=== PATIENT | female | born 1965 | race Caucasian/White ===

== ENCOUNTER 2017-07-23 14:53 | Observation (INO) ==
[2017-07-23 15:37] LABS: Bilirubin,Urine Negative (Negative); Blood,Urine Negative (Negative); Clarity,Urine Cloudy (Clear); Color,Urine Yellow (Yellow); Glucose,Urine (UA) >=1000 mg/dL (Normal); Ketones,Urine 15 mg/dL (Negative); Leukocyte Esterase,Urine Negative (Negative); Nitrite,Urine Negative (Negative); Protein,Urine Negative (Neg-Trace); Specific Gravity,Urine > 1.030 (1.010-1.025); Urobilinogen,Urine Normal (Normal)
[2017-07-23 15:39] LABS: Bacteria,Urine Few per hpf (None-Few); Hyaline Casts,Urine None Seen per lpf (None-Few); Squamous Epithelial Cell,Urine Many per lpf (None-Few); WBC,Urine 0-3 per hpf (0-3)
[2017-07-23 15:43] LABS: Amphetamine Screen,Urine Negative ng/mL (Cutoff=1000); Barbiturate Screen,Urine Negative ng/mL (Cutoff=200); Benzodiazepines Screen,Urine Positive ng/mL (Cutoff=200); Cannabinoid Screen,Urine Negative ng/mL (Cutoff = 50); Cocaine Screen,Urine Negative ng/mL (Cutoff= 300); Opiate Screen,Urine Negative ng/mL (Cutoff=300); Phencyclidine Screen,Urine Negative ng/mL (Cutoff=25)
[2017-07-23 15:54] LABS: RBC,Urine 0-3 per hpf (0-3); Yeast,Urine Few per hpf (None Seen)
--- NOTE | 2017-07-23 15:54 | Emergency Department Note ---
Disposition Clinical Impression: Hyperglycemia, Suicidal ideation Chest pain Qualifiers: Chest pain type: unspecified Qualified Code(s): R07.9 - Chest pain, unspecified Disposition: Admitted As Inpatient Condition: Good Time of Disposition: 17:57 Psych HPI - General Chief Complaint: ED Psychiatric Symptoms Stated Complaint: SI Time Seen by Provider: 07/23/17 15:20 Source: patient Mode of arrival: ambulatory Limitations: no limitations Nursing Notes Reviewed: Yes Vital Signs Reviewed: Yes - History of Present Illness HPI Narrative: Patient is a 52-year-old female with past medical history of high blood pressure , diabetes, high cholesterol, depression, anxiety. She presents today due to suicidal ideation. She does admit that she has had an admission to [facility] here once in the past about a year ago. She denies any previous suicide attempts or self harm. She has had an exacerbation and depression over the past 2 years due to the passing of her mother. She denies any ingestions, self- harm today. She does have a plan of using a razor blade to cut herself to bleed to . She denies any homicidal ideation, visual or auditory hallucinations. She takes Valium and Vistaril daily for anxiety. She follows with Dr. Mittal. She called their office and was referred to the ED. While waiting for room, the patient began having centered chest pain with radiation to her left jaw. She does admit to panic attacks but says that this is different from usual presentation. Denies any shortness of breath, vomiting , fevers, abdominal pain. Denies any previous history of [place], stents. She had a heart cath last year that was negative per patient. - Related Data Home Medications Medication Instructions Recorded Confirmed Citalopram [CeleXA] 40 mg PO DAILY 10/19/16 07/23/17 Lisinopril [Zestril] 20 mg PO BID 10/19/16 07/23/17 Amoxicillin [Amoxil] 500 mg PO TID 07/23/17 07/23/17 Cyclobenzaprine [Flexeril] 10 mg PO TID PRN 07/23/17 07/23/17 Ibuprofen [Motrin] 800 mg PO Q8HR 07/23/17 07/23/17 Mirtazapine [Remeron] 15 mg PO HS 07/23/17 07/23/17 Omeprazole [PriLOSEC] 20 mg PO DAILY 07/23/17 07/23/17 Perphenazine [Trilafon] 2 mg PO QAM AND QHS 07/23/17 07/23/17 diazePAM [Valium] 10 mg PO BID PRN 07/23/17 07/23/17 hydrOXYzine HCl [Hydroxyzine HCl] 50 mg PO TID PRN 07/23/17 07/23/17 Previous Rx's Medication Instructions Recorded Perphenazine [Trilafon] 8 mg PO HS #30 tablet 01/27/16 glipiZIDE [Glucotrol] 10 mg PO BIDWM tablet 01/27/16 metFORMIN [Glucophage] 1,000 mg PO BIDWM tablet 01/27/16 Allergies Allergy/AdvReac Type Severity Reaction Status Date / Time No Known Allergies Allergy Verified 04/16/16 01:48 All systems ED: reviewed and negative except as stated. Constitutional: Denies: fever Cardiovascular: Reports: chest pain Past Medical History - Past Medical History Attestation: Yes The following information was validated with the patient. Source: patient Medical history: Reports: arthritis, diabetes, GERD, hyperlipidemia, hypertension, seizures, other Surgical history: Reports: appendectomy, , cholecystectomy, hysterectomy, other Psychiatric history: Reports: anxiety, depression, prior suicide attempt, previous psychiatric hospitalization - Social History Smoking Status: Never smoker Smokeless Tobacco Status: No Alcohol use: Reports: none Drug use: Reports: none Physical Exam - General Limitations: no limitations General appearance: alert, in no apparent distress - Head Head exam: atraumatic, normocephalic, normal inspection - Eye Eye exam: Present: normal appearance, PERRL, EOMI - ENT ENT exam: normal exam, normal oropharynx, mucous membranes moist - Neck Neck exam: Present: normal inspection, full ROM, trachea midline - Chest Chest inspection: Present: normal inspection, symmetric chest wall rise - Respiratory Respiratory exam: Present: normal lung sounds bilaterally - Cardiovascular Cardiovascular exam: Present: regular rate, normal rhythm, normal heart sounds - Abdominal Exam Abdominal exam: Present: soft, Non-Tender. Absent: tenderness, distention, guarding, rebound, rigidity - Extremities Exam Extremities exam: Present: normal inspection, full ROM. Absent: tenderness, pedal edema - Neurological Exam Neurological exam: Present: alert, oriented X3 - Psychiatric Psychiatric exam: Present: depressed, flat affect - Skin Skin exam: Present: warm, dry, intact, normal color Course Course Narrative: Patient mildly tachycardic, mildly hypertensive. She does appear anxious on exam. The rest of the vitals were within normal limits. Physical exam shows heart regular rhythm, lungs clear to auscultation, no reproducible chest pain on exam, abdomen soft and benign. We will draw a troponin, medical clearance labs, EKG, chest x-ray. Chest pain may be more anxiety in nature, but will perform cardiac eval. 17:18 troponin negative. Chest x-ray negative. Glucose elevated at 400s, no anion gap. We will give the patient normal saline and 10 units of IV insulin. Patient is still having chest pain despite 4 mg of morphine. The patient was not able to be given nitroglycerin because of a lower systolic blood pressure in the 90s on initial presentation. Blood pressure has since normalized and his 120s systolic. Due to continued chest pain, will admit the patient for chest pain rule out. I have also called behavioral health team who have agreed to be a consult to the patient while inpatient. Patient will need a sitter. This will be discussed with the hospitalist. Vital Signs Temperature 98.3 F 07/23/17 15:04 Pulse Rate 103 07/23/17 15:04 Respiratory Rate 18 07/23/17 15:04 Blood Pressure 135/84 07/23/17 15:04 O2 Sat by Pulse Oximetry 96 07/23/17 15:04 Temperature 98.0 F 07/23/17 19:24 Pulse Rate 86 07/23/17 19:24 Respiratory Rate 15 07/23/17 19:24 Blood Pressure 102/69 07/23/17 19:24 O2 Sat by Pulse Oximetry 94 07/23/17 19:24 Oxygen Delivery Oxygen Delivery Room Air Psych - MDM Narrative Medical decision making narrative: troponin negative. Chest x-ray negative. Glucose elevated at 400s, no anion gap. We will give the patient normal saline and 10 units of IV insulin. Patient is still having chest pain despite 4 mg of morphine. The patient was not able to be given nitroglycerin because of a lower systolic blood pressure in the 90s on initial presentation. Blood pressure has since normalized and his 120s systolic. Due to continued chest pain, will admit the patient for chest pain rule out. I have also called behavioral health team who have agreed to be a consult to the patient while inpatient. Patient will need a sitter. [place] slip on chart. This will be discussed with the hospitalist. - Lab Data Lab results reviewed: Yes I reviewed the patient's lab results. Result diagrams: 07/23/17 16:40 07/23/17 16:02 Lab Results 07/23/17 07/23/17 07/23/17 Range/Units 15:01 15:01 16:02 WBC (4.3-11.1) K/mcL RBC (3.82-4.97) M/mcL Hgb (11.5-15.4) g/dL Hct (35.3-44.9) % MCV (83.0-100.0) fL MCH (28.0-33.3) pg MCHC (31.6-35.5) g/dL RDW (11.5-14.5) % Plt Count (140-400) K/mcL MPV (9.4-12.4) fL Immature Gran % (0-4) % Seg Neutrophils % % Lymphocytes % % Monocytes % % Eosinophils % % Basophils % % Neutrophils # (1.6-8.9) K/mcL Lymphocytes # (0.6-4.6) K/mcL Monocytes # (0.0-1.3) K/mcL Eosinophils # (0.0-0.6) K/mcL Basophils # (0.0-0.2) K/mcL Immature Plt Fraction (1.1-6.1) % Sodium 132 L (136-145) mEq/L Potassium 4.0 (3.5-4.5) mEq/L Chloride 103 (98-109) mEq/L Carbon Dioxide 17 L (19-29) mEq/L BUN 10 (7-20) mg/dL Creatinine 0.87 (0.57-1.11) mg/dL Est GFR ( Amer) > 60 (> 60) Est GFR (Non-Af Amer) > 60 (> 60) BUN/Creatinine Ratio 11 (6-26) Glucose 418 H (70-99) mg/dL POC Glucose (58-89) Calculated Osmolality 291 (280-300) Calcium 9.2 (8.6-10.8) mg/dL Total Bilirubin 0.2 (0.2-1.2) mg/dL Direct Bilirubin 0.1 (0.0-0.5) mg/dL Indirect Bilirubin 0.1 (0.0-1.2) mg/dL AST 18 (5-34) Units/L ALT 23 (0-55) Units/L Alkaline Phosphatase 176 H (38-126) Units/L Troponin I (0-0.03) ng/mL Serum Total Protein 7.0 (6.0-8.3) g/dL Albumin 3.3 L (3.5-5.0) g/dL Globulin 3.7 H (2.4-3.5) g/dL Albumin/Globulin Ratio 0.9 L (1.1-2.2) TSH 1.003 (0.350-4.840) mcIU/mL Urine Color Yellow (Yellow) Urine Clarity Cloudy A (Clear) Urine pH 6.0 (5.0-8.0) pH Units Ur Specific [place] > 1.030 H (1.010-1.025) Urine Protein Negative (Neg-Trace) mg/dL Urine Glucose (UA) >=1000 H (Normal) mg/dL Urine Ketones 15 H (Negative) mg/dL Urine Blood Negative (Negative) Urine Nitrite Negative (Negative) Urine Bilirubin Negative (Negative) Urine Urobilinogen Normal (Normal) mg/dL Ur Leukocyte Esterase Negative (Negative) Urine Microscopic RBC 0-3 (0-3) per hpf Urine Microscopic WBC 0-3 (0-3) per hpf Ur Squamous Epith Cells Many H (None-Few) per lpf Urine Bacteria Few (None-Few) per hpf Hyaline Casts None Seen (None-Few) per lpf Urine Yeast Few H (None Seen) per hpf Salicylates < 5.0 L (15-30) mg/dL Urine Opiates Screen Negative (Wyxkrg=207) ng/mL Acetaminophen < 1.0 L (10-30) mcg/mL Ur Barbiturates Screen Negative (Avnjuc=870) ng/mL Ur Phencyclidine Scrn Negative (Cutoff=25) ng/mL Ur Amphetamines Screen Negative (Bznkgh=9663) ng/mL U Benzodiazepines Scrn Positive H (Wvkkqi=234) ng/mL Urine Cocaine Screen Negative (Cutoff= 300) ng/mL U Marijuana (THC) Screen Negative (Cutoff = 50) ng/mL Ethyl Alcohol < 10 (0-10) mg/dL 10/07/23/17 07/23/17 Range/Units 16:02 16:40 17:49 WBC 8.5 (4.3-11.1) K/mcL RBC 4.20 (3.82-4.97) M/mcL Hgb 11.3 L (11.5-15.4) g/dL Hct 33.1 L (35.3-44.9) % MCV 78.8 L (83.0-100.0) fL MCH 26.9 L (28.0-33.3) pg MCHC 34.1 (31.6-35.5) g/dL RDW 12.6 (11.5-14.5) % Plt Count 244 (140-400) K/mcL MPV 9.7 (9.4-12.4) fL Immature Gran % 0.9 (0-4) % Seg Neutrophils % 58.6 % Lymphocytes % 34.4 % Monocytes % 4.1 % Eosinophils % 1.5 % Basophils % 0.5 % Neutrophils # 5.0 (1.6-8.9) K/mcL Lymphocytes # 2.9 (0.6-4.6) K/mcL Monocytes # 0.4 (0.0-1.3) K/mcL Eosinophils # 0.1 (0.0-0.6) K/mcL Basophils # 0.0 (0.0-0.2) K/mcL Immature Plt Fraction 3.2 (1.1-6.1) % Sodium (136-145) mEq/L Potassium (3.5-4.5) mEq/L Chloride (98-109) mEq/L Carbon Dioxide (19-29) mEq/L BUN (7-20) mg/dL Creatinine (0.57-1.11) mg/dL Est GFR ( Amer) (> 60) Est GFR (Non-Af Amer) (> 60) BUN/Creatinine Ratio (6-26) Glucose (70-99) mg/dL POC Glucose 306 H (58-89) Calculated Osmolality (280-300) Calcium (8.6-10.8) mg/dL Total Bilirubin (0.2-1.2) mg/dL Direct Bilirubin (0.0-0.5) mg/dL Indirect Bilirubin (0.0-1.2) mg/dL AST (5-34) Units/L ALT (0-55) Units/L Alkaline Phosphatase (38-126) Units/L Troponin I 0.01 (0-0.03) ng/mL Serum Total Protein (6.0-8.3) g/dL Albumin (3.5-5.0) g/dL Globulin (2.4-3.5) g/dL Albumin/Globulin Ratio (1.1-2.2) TSH (0.350-4.840) mcIU/mL Urine Color (Yellow) Urine Clarity (Clear) Urine pH (5.0-8.0) pH Units Ur Specific [place] (1.010-1.025) Urine Protein (Neg-Trace) mg/dL Urine Glucose (UA) (Normal) mg/dL Urine Ketones (Negative) mg/dL Urine Blood (Negative) Urine Nitrite (Negative) Urine Bilirubin (Negative) Urine Urobilinogen (Normal) mg/dL Ur Leukocyte Esterase (Negative) Urine Microscopic RBC (0-3) per hpf Urine Microscopic WBC (0-3) per hpf Ur Squamous Epith Cells (None-Few) per lpf Urine Bacteria (None-Few) per hpf Hyaline Casts (None-Few) per lpf Urine Yeast (None Seen) per hpf Salicylates (15-30) mg/dL Urine Opiates Screen (Lexdmh=692) ng/mL Acetaminophen (10-30) mcg/mL Ur Barbiturates Screen (Idlybg=374) ng/mL Ur Phencyclidine Scrn (Cutoff=25) ng/mL Ur Amphetamines Screen (Lyvhjc=4227) ng/mL U Benzodiazepines Scrn (Tzamys=395) ng/mL Urine Cocaine Screen (Cutoff= 300) ng/mL U Marijuana (THC) Screen (Cutoff = 50) ng/mL Ethyl Alcohol (0-10) mg/dL - Radiology Data Radiology results reviewed: Yes I reviewed the patient's radiology results. Chest X-Ray 07/23/17 15:55 IMPRESSION: No acute process. D/ / Silverio Bee MD / Silverio Bee MD Interpreting Provider: Silverio Bee MD - EKG Data EKG attestation: Yes I reviewed and interpreted this EKG. EKG results narrative: 07/23/2017 at 15:35. Sinus tachycardia. Rate 101. NC 163. QRS 82. QTC 428. No acute ST elevation or depression. Psychiatric Medical Clearance - Medical Clearance Checklist Medical History: Chest pain (Acute) GERD (gastroesophageal reflux disease) (Acute) Atrial fibrillation (Acute) Anxiety (Acute) DVT prophylaxis (Acute) Abnormal stress test (Acute) Hyperglycemia (Acute) PTSD (post-traumatic stress disorder) (Acute) Acute anxiety (Acute) Depression (Chronic) Suicidal ideation (Acute) Recurrent major depression-severe (Acute) Seizure disorder (Chronic) Morbid obesity with BMI of 40.0-44.9, adult (Chronic) Diabetes mellitus (Chronic) Hypertension (Chronic) Dyslipidemia (Chronic) Hypokalemia (Acute) Anemia (Chronic) Situational disturbance (Acute) Psychiatric pseudoseizure (Acute) No Social History Section defined Current Vitals: Last Vital Signs Temp 98.0 F 07/23/17 19:24 Pulse 86 07/23/17 19:24 Resp 15 07/23/17 19:24 BP 102/69 07/23/17 19:24 Pulse Ox 94 07/23/17 19:24 Psychiatric Lab Panel: Drug Levels and Toxicity 07/23/17 07/23/17 15:01 16:02 Urine Opiates Screen Negative Acetaminophen < 1.0 L Ur Barbiturates Screen Negative Ur Phencyclidine Scrn Negative Ur Amphetamines Screen Negative U Benzodiazepines Scrn Positive H Urine Cocaine Screen Negative U Marijuana (THC) Screen Negative Ethyl Alcohol < 10 Abnormal Labs: Abnormal lab results Hgb 11.3 g/dL (11.5-15.4) L 07/23/17 16:40 Hct 33.1 % (35.3-44.9) L 07/23/17 16:40 MCV 78.8 fL (83.0-100.0) L 07/23/17 16:40 MCH 26.9 pg (28.0-33.3) L 07/23/17 16:40 Sodium 132 mEq/L (136-145) L 07/23/17 16:02 Carbon Dioxide 17 mEq/L (19-29) L 07/23/17 16:02 Glucose 418 mg/dL (70-99) H 07/23/17 16:02 POC Glucose 306 (58-89) H 07/23/17 17:49 Alkaline Phosphatase 176 Units/L (38-126) H 07/23/17 16:02 Albumin 3.3 g/dL (3.5-5.0) L 07/23/17 16:02 Globulin 3.7 g/dL (2.4-3.5) H 07/23/17 16:02 Albumin/Globulin Ratio 0.9 (1.1-2.2) L 07/23/17 16:02 Urine Clarity Cloudy (Clear) A 07/23/17 15:01 Ur Specific [place] > 1.030 (1.010-1.025) H 07/23/17 15:01 Urine Glucose (UA) >=1000 mg/dL (Normal) H 07/23/17 15:01 Urine Ketones 15 mg/dL (Negative) H 07/23/17 15:01 Ur Squamous Epith Cells Many per lpf (None-Few) H 07/23/17 15:01 Urine Yeast Few per hpf (None Seen) H 07/23/17 15:01 Salicylates < 5.0 mg/dL (15-30) L 07/23/17 16:02 Acetaminophen < 1.0 mcg/mL (10-30) L 07/23/17 16:02 U Benzodiazepines Scrn Positive ng/mL (Pctohb=390) H 07/23/17 15:01 S.B.A.R. - S.B.A.R. Situation: Demographics, MOA Background: Presenting Complaint, Relevant PMH, Meds, & Allergies Assessment: Vital Signs, Course and respsone to treatment, Exam Concerns, Patient/Family Expectation, Pertinant Lab Results Recommendation: Barrier(s) to disposition, Recommendation based on pending studies, treatments, or consults S.B.A.R. Report Given to: Kiel Herrera SJessBJessADavid Repor Time: 17:56 Attestation Statement - Attestation Attestation: I examined this patient and my medical decision-making was reviewed with the Resident Physician. I agree with the documented findings, disposition and treatment plan as described except to the extent set forth below. Chest pain in the setting of suicidal ideations. EKG nondiagnostic. Initial cardiac biomarkers are negative. We will admit to the hospital as she has ongoing chest pain concurrently with suicidal ideations and we cannot provide adequate medical clearance in the emergency department.
[2017-07-23] MEDS ORDERED: Aspirin 325 MG TABLET PO ONE (15:56)
[2017-07-23] MEDS ORDERED: *HR* Morphine 2 MG/ML SYRINGE IVP ONE ×3 (16:22→23:41)
[2017-07-23 16:26] LABS: Alanine Aminotransferase 23 Units/L (0-55); Albumin 3.3 g/dL (3.5-5.0); Albumin/Globulin Ratio 0.9 (1.1-2.2); Alkaline Phosphatase 176 Units/L (38-126); Aspartate Amino Transferase 18 Units/L (5-34); BUN/Creatinine Ratio 11 (6-26); Bilirubin,Direct 0.1 mg/dL (0.0-0.5); Bilirubin,Indirect 0.1 mg/dL (0.0-1.2); Bilirubin,Total 0.2 mg/dL (0.2-1.2); Blood Urea Nitrogen 10 mg/dL (7-20); Calcium 9.2 mg/dL (8.6-10.8); Carbon Dioxide 17 mEq/L (19-29); Chloride 103 mEq/L (98-109); Globulin 3.7 g/dL (2.4-3.5); Glucose 418 mg/dL (70-99); Osmolality,Calculated 291 (280-300); Sodium 132 mEq/L (136-145); eGFR For African Americans > 60 (> 60); eGFR For Non-African Americans > 60 (> 60)
[2017-07-23 16:31] LABS: Acetaminophen < 1.0 mcg/mL (10-30); Ethanol < 10 mg/dL (0-10); Salicylate < 5.0 mg/dL (15-30)
[2017-07-23 16:49] LABS: Thyroid Stimulating Hormone 1.003 mcIU/mL (0.350-4.840)
[2017-07-23 16:59] LABS: Basophils % 0.5 %; Eosinophils # 0.1 K/mcL (0.0-0.6); Eosinophils % 1.5 %; Hematocrit 33.1 % (35.3-44.9); Hemoglobin 11.3 g/dL (11.5-15.4); Immature Granulocytes % 0.9 % (0-4); Immature Platelets 3.2 % (1.1-6.1); Lymphocytes # 2.9 K/mcL (0.6-4.6); Lymphocytes % 34.4 %; Mean Corpuscular HGB Conc 34.1 g/dL (31.6-35.5); Mean Corpuscular Hemoglobin 26.9 pg (28.0-33.3); Mean Corpuscular Volume 78.8 fL (83.0-100.0); Mean Platelet Volume 9.7 fL (9.4-12.4); Monocytes # 0.4 K/mcL (0.0-1.3); Monocytes % 4.1 %; Platelet Count 244 K/mcL (140-400); Red Cell Distribution Width 12.6 % (11.5-14.5); Segmented Neutrophils % 58.6 %
[2017-07-23] MEDS ORDERED: Insulin Human Regular 10 UNIT in 0.9 % Sodium Chloride 10 ML IV ONE (17:00)
[2017-07-23] MEDS ORDERED: 0.9 % Sodium Chloride 1,000 ML IVC ONE (17:02)
[2017-07-23] MEDS ORDERED: Ondansetron 4 MG/2 ML VIAL IVP ONE (17:13)
[2017-07-23] MEDS ORDERED: *HR* LORazepam 2 MG/ML VIAL IVP ONE (17:59)
[2017-07-23] MEDS: Nitroglycerin 0.4 MG TAB.SUBL SL PRN ×2 (18:57→21:45)
[2017-07-23] MEDS ORDERED: diazePAM 10 MG TABLET PO PRN (22:22)
[2017-07-24] MEDS ORDERED: hydrOXYzine pamoate 25 MG CAPSULE PO PRN (00:49)
--- NOTE | 2017-07-24 01:04 | Internal Med History&Physical ---
Date of Encounter: 07/24/17 Time of Encounter: 01: Assessment and Plan (1) Chest pain Current visit: Yes Status: Acute Non-anginal chest pain. EKG without ischemic changes. Initial troponin normal. Check 2 more sets of cardiac markers. Qualifiers: Chest pain type: unspecified Qualified Code(s): R07.9 - Chest pain, unspecified (2) Suicidal ideation Current visit: Yes Status: Acute No active plan or ingestion. Sitter at bedside. Psychiatry evaluation Internal Medicine - H&P: HPI Chief complaint: chest pain, suicidal History of present illness: Ms. Frost is a 52 year old female with multiple medical problems presented emergency room today with the main complain of suicidal ideations. Patient denies any active attempt of self harm/ingestion today. Patient started complaining of chest pain in the emergency room. She describes pain in the retrosternal area that is non-radiating and not related to exertion. Pain has been constant for several hours to my interview. No improvement was sublingual nitroglycerin. Patient had a coronary angiogram in October 2016 showed no coronary artery disease. Patient denies any illicit drug abuse Past Med Surg Social Fam HX - Past Medical History Medical history: arthritis, diabetes, GERD, hyperlipidemia, hypertension, seizures, other Psychiatric history: anxiety, depression, prior suicide attempt, previous psychiatric hospitalization - Past Surgical History Surgical History: appendectomy, , cholecystectomy, hysterectomy, other - Social History Smoking Status: Never smoker Smokeless Tobacco Status: No Alcohol use: none Drug use: none - Family History Father Living Status: Hx Family Cardiac Disorders: Yes Hx Family Endocrine Disorder: Yes Mother Living Status: Hx Family Cardiac Disorders: Yes Hx Family Respiratory Disorders: Yes (COPD) Hx Family Endocrine Disorder: Yes Internal Medicine - H&P: Meds Perphenazine [Trilafon] 8 mg PO HS #30 tablet 01/27/16 [Rx] glipiZIDE [Glucotrol] 10 mg PO BIDWM tablet 01/27/16 [Rx] metFORMIN [Glucophage] 1,000 mg PO BIDWM tablet 01/27/16 [Rx] Citalopram [CeleXA] 40 mg PO DAILY 10/19/16 [History] Lisinopril [Zestril] 20 mg PO BID 10/19/16 [History] Amoxicillin [Amoxil] 500 mg PO TID 07/23/17 [History] Cyclobenzaprine [Flexeril] 10 mg PO TID PRN 07/23/17 [History] Ibuprofen [Motrin] 800 mg PO Q8HR 07/23/17 [History] Mirtazapine [Remeron] 15 mg PO HS 07/23/17 [History] Omeprazole [PriLOSEC] 20 mg PO DAILY 07/23/17 [History] Perphenazine [Trilafon] 2 mg PO QAM AND QHS 07/23/17 [History] diazePAM [Valium] 10 mg PO BID PRN 07/23/17 [History] hydrOXYzine HCl [Hydroxyzine HCl] 50 mg PO TID PRN 07/23/17 [History] 3 Allergy/AdvReac Type Severity Reaction Status Date / Time No Known Allergies Allergy Verified 04/16/16 01:48 All Systems PM: A 10-system review of systems was performed and is negative for pertinent findings except as documented above in the HPI. Review of systems: 10 point review of systems is negative except for HPI - Constitutional Vitals: Temp Pulse Resp BP Pulse Ox 98.1 F 89 15 100/65 94 07/23/17 22:55 07/23/17 22:55 07/23/17 22:55 07/23/17 22:55 07/23/17 22:55 Exam: Gen.: patient is alert oriented times 3 not in distress. Cardiac: normal S1 S2 no additional sounds or murmurs chest: fair air entry. no active wheezing. No crackles or bronchial breathing. abdomen: soft nontender nondistended normal bowel sounds neuro: no focal deficit Internal Med - H&P Results - Labs CBC & Chem 7: 07/23/17 16:40 07/23/17 16:02
[2017-07-24] MEDS ORDERED: 0.9 % Sodium Chloride 1,000 ML IVC SCH (01:15)
[2017-07-24] MEDS: Nitroglycerin 0.4 MG TAB.SUBL SL PRN (02:12)
[2017-07-24] MEDS ORDERED: 0.9 % Sodium Chloride 1,000 ML IVC ONE (03:00)
[2017-07-24] MEDS: *HR* Morphine 2 MG/ML SYRINGE IVP PRN ×2 (03:13→08:06)
[2017-07-24] MEDS ORDERED: Insulin LISPRO 300 UNITS/3 ML VIAL SQ SCH (04:00)
[2017-07-24] MEDS ORDERED: Dextrose Gel 15 GM PO PRN ×2 (07:28)
[2017-07-24] MEDS ORDERED: D5% in Water 1,000 ML IVC PRN (07:28)
[2017-07-24] MEDS ORDERED: *HR* Dextrose 50 % in Water (Syg) 50 ML SYRINGE IVP PRN (07:28)
[2017-07-24] MEDS: Insulin LISPRO 300 UNITS/3 ML VIAL SQ SCH ×3 (08:05→17:23)
[2017-07-24] MEDS ORDERED: Ondansetron ODT 4 MG TAB.RAPDIS SL PRN (08:15)
[2017-07-24] MEDS ORDERED: Lisinopril 20 MG TABLET PO SCH (09:00)
[2017-07-24 09:16] LABS: Hemoglobin A1C 12.8 %
[2017-07-24] MEDS ORDERED: Aspirin 81 MG TAB.CHEW PO SCH (10:15)
--- NOTE | 2017-07-24 10:50 | Event Note ---
Date of Encounter: 07/24/17 Time of Encounter: 10:00 Nia Frost is a 52 y/o female with PMH depression, PTSD, seizure disorder, HTN and diabetes who presented to [facility] on 07/24/2017 with suicidal ideation. She reported chest pain in the ER and was placed in observation status for Psychiatric evaluation and ACS rule out. 1. Chest pain: patient reported chest pain while in ER. EKG without acute ST changes, serial troponin negative. 10/2016 LCH with minimal CAD. Suspect secondary to anxiety. Hold on further cardiac work-up. Cont ASA, recommend outpatient follow-up with PCP 2. Suicidal ideation: presented with thoughts of wanting to cut self with razor blade. Has known psychiatric hx. Cont 1:1 sitter, Psych consulted 3. Uncontrolled diabetes: Hgb 12%, likely secondary to diet non-compliance. Holding home oral hypoglycemics. SSI. Monitor blood sugar and titrate PRN 4. Depression: with anxiety. Per hx. Follows with Daily. Cont home Diazepam , Celexa ([facility] reviewed 07/24/17 and has active rx for valium). Psych consulted 5. DVT prophylaxis: Heparin
[2017-07-24] MEDS ORDERED: diazePAM 10 MG TABLET PO PRN (10:51)
[2017-07-24 12:00] VITALS: BP 122/74
--- NOTE | 2017-07-24 12:26 | Electrocardiograph Report ---
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
--- NOTE | 2017-07-24 13:19 | Consult Note ---
Date of Encounter: 07/24/17 Time of Encounter: 12:15 Assessment & Recommendation (1) Major depressive disorder, recurrent severe without psychotic features Current visit: Yes Status: Acute Assessment & Recommendation: She has severe depression actively suicidal at this time. Recommended admission to 1A once medically stable. Continue current medications for now. Will adjust medications once patient has been cleared for psychiatry. Continue one-to-one sitter. (2) Anxiety Current visit: Yes Status: Acute History of Present Illness Patient: known to practice within the last 3 years Requesting Physician: Lyndsay Martinez CNP Reason for consult: SI History of present illness: Ms. Frost is a 52 year old female with a long-standing history of depression, anxiety, personality issues presented to the hospital with chest pain as well as suicidal ideation. Patient reports increasing depression over the past few weeks as well as suicidal ideations with a plan to "break open a razor and cut myself." She was last seen by outpatient psychiatrist in February. She does still struggle with some anxiety issues that the Valium is helpful for her. She also continues to take hydroxyzine. Sleep has also been an issue. Patient reports continued intermittent suicidal ideation since admission to the hospital but no active plan here. is also concern for patient. Patient reports difficulty falling asleep and staying asleep at times. She also reports chronic fatigue. CC: Lyndsay Martinez CNP Past Med Surg Social Fam HX - Past Medical History Medical history: arthritis, diabetes, GERD, hyperlipidemia, hypertension, seizures, other - Past Psychiatric History Psychiatric history: Reports: anxiety, depression, prior suicide attempt, previous psychiatric hospitalization Past psychiatric history details: Patient has long-standing psychiatric history with multiple psychiatric admissions for suicidal ideation. Family psychiatric history: Yes Family Psychiatric History Details: Patient states that depression runs in the family. Family History of Suicide: None - Past Surgical History Surgical History: appendectomy, , cholecystectomy, hysterectomy, other - Social History Smoking Status: Never smoker Smokeless Tobacco Status: No Alcohol use: none Drug use: none Current living situation: With Family Activity Level: Independent ambulation - Family History Father Living Status: Hx Family Cardiac Disorders: Yes Hx Family Endocrine Disorder: Yes Mother Living Status: Hx Family Cardiac Disorders: Yes Hx Family Respiratory Disorders: Yes (COPD) Hx Family Endocrine Disorder: Yes Medications & Allergies Perphenazine [Trilafon] 8 mg PO HS #30 tablet 01/27/16 [Rx] glipiZIDE [Glucotrol] 10 mg PO BIDWM tablet 01/27/16 [Rx] metFORMIN [Glucophage] 1,000 mg PO BIDWM tablet 01/27/16 [Rx] Citalopram [CeleXA] 40 mg PO DAILY 10/19/16 [History] Lisinopril [Zestril] 20 mg PO BID 10/19/16 [History] Amoxicillin [Amoxil] 500 mg PO TID 07/23/17 [History] Cyclobenzaprine [Flexeril] 10 mg PO TID PRN 07/23/17 [History] Ibuprofen [Motrin] 800 mg PO Q8HR 07/23/17 [History] Mirtazapine [Remeron] 15 mg PO HS 07/23/17 [History] Omeprazole [PriLOSEC] 20 mg PO DAILY 07/23/17 [History] Perphenazine [Trilafon] 2 mg PO QAM AND QHS 07/23/17 [History] diazePAM [Valium] 10 mg PO BID PRN 07/23/17 [History] hydrOXYzine HCl [Hydroxyzine HCl] 50 mg PO TID PRN 07/23/17 [History] 3 Allergy/AdvReac Type Severity Reaction Status Date / Time No Known Allergies Allergy Verified 04/16/16 01:48 Review of Systems Constitutional: Reports: other (Fatigue) Cardiovascular: Reports: chest pain (May be anxiety related) Psychiatric: Reports: depression, anxiety, abnormal sleep pattern, suicidal ideation, anhedonia, difficulty concentrating, hopelessness, irritability, mood swings. Denies: auditory hallucinations, visual hallucinations Mental Status Exam Patient orientation: Yes Person, Yes Time, Yes Place Level of alertness: Alert Patient appearance: Appropriate Behavior: calm, cooperative Psychomotor activity: Normal Eye contact: Maintains Eye Contact Mood description: Depressed Affect description: tearful, dysphoric Speech pattern: Normal rate, Normal rhythm, Normal tone Speech volume: Normal Thought process: Intact Thought content: Yes Suicidal ideation, No Homicidal ideation Perceptual disturbances: No Auditory hallucinations, No Visual hallucinations Attention span: Capable of Focused Attention Memory description: Grossly Intact Patient reliability: Reliable Historian Intelligence estimate: Average Judgment: Limited Insight: Minimal Results - Vital Signs Vital signs: Temp Pulse Resp BP Pulse Ox 97.9 F 90 18 122/74 96 07/24/17 11:59 07/24/17 11:59 07/24/17 11:59 07/24/17 11:59 07/24/17 11:59 - Labs Labs: Laboratory Last Values WBC 8.5 K/mcL (4.3-11.1) 07/23/17 16:40 RBC 4.20 M/mcL (3.82-4.97) 07/23/17 16:40 Hgb 11.3 g/dL (11.5-15.4) L 07/23/17 16:40 Hct 33.1 % (35.3-44.9) L 07/23/17 16:40 MCV 78.8 fL (83.0-100.0) L 07/23/17 16:40 MCH 26.9 pg (28.0-33.3) L 07/23/17 16:40 MCHC 34.1 g/dL (31.6-35.5) 07/23/17 16:40 RDW 12.6 % (11.5-14.5) 07/23/17 16:40 Plt Count 244 K/mcL (140-400) 07/23/17 16:40 MPV 9.7 fL (9.4-12.4) 07/23/17 16:40 Immature Gran % 0.9 % (0-4) 07/23/17 16:40 Seg Neutrophils % 58.6 % 07/23/17 16:40 Lymphocytes % 34.4 % 07/23/17 16:40 Monocytes % 4.1 % 07/23/17 16:40 Eosinophils % 1.5 % 07/23/17 16:40 Basophils % 0.5 % 07/23/17 16:40 Neutrophils # 5.0 K/mcL (1.6-8.9) 07/23/17 16:40 Lymphocytes # 2.9 K/mcL (0.6-4.6) 07/23/17 16:40 Monocytes # 0.4 K/mcL (0.0-1.3) 07/23/17 16:40 Eosinophils # 0.1 K/mcL (0.0-0.6) 07/23/17 16:40 Basophils # 0.0 K/mcL (0.0-0.2) 07/23/17 16:40 Immature Plt Fraction 3.2 % (1.1-6.1) 07/23/17 16:40 Sodium 132 mEq/L (136-145) L 07/23/17 16:02 Potassium 4.0 mEq/L (3.5-4.5) 07/23/17 16:02 Chloride 103 mEq/L (98-109) 07/23/17 16:02 Carbon Dioxide 17 mEq/L (19-29) L 07/23/17 16:02 BUN 10 mg/dL (7-20) 07/23/17 16:02 Creatinine 0.87 mg/dL (0.57-1.11) 07/23/17 16:02 Est GFR ( Amer) > 60 (> 60) 07/23/17 16:02 Est GFR (Non-Af Amer) > 60 (> 60) 07/23/17 16:02 BUN/Creatinine Ratio 11 (6-26) 07/23/17 16:02 Glucose 418 mg/dL (70-99) H 07/23/17 16:02 POC Glucose 306 (58-89) H 07/24/17 07:23 Est Mean Plasma Glucose 321 mg/dl 07/24/17 00:50 Hemoglobin A1c 12.8 % (-5.6) H 07/24/17 00:50 Calculated Osmolality 291 (280-300) 07/23/17 16:02 Calcium 9.2 mg/dL (8.6-10.8) 07/23/17 16:02 Total Bilirubin 0.2 mg/dL (0.2-1.2) 07/23/17 16:02 Direct Bilirubin 0.1 mg/dL (0.0-0.5) 07/23/17 16:02 Indirect Bilirubin 0.1 mg/dL (0.0-1.2) 07/23/17 16:02 AST 18 Units/L (5-34) 07/23/17 16:02 ALT 23 Units/L (0-55) 07/23/17 16:02 Alkaline Phosphatase 176 Units/L (38-126) H 07/23/17 16:02 Creatine Kinase 22 Units/L (29-168) L 07/24/17 07:12 Troponin I 0.01 ng/mL (0-0.03) 07/24/17 07:12 Serum Total Protein 7.0 g/dL (6.0-8.3) 07/23/17 16:02 Albumin 3.3 g/dL (3.5-5.0) L 07/23/17 16:02 Globulin 3.7 g/dL (2.4-3.5) H 07/23/17 16:02 Albumin/Globulin Ratio 0.9 (1.1-2.2) L 07/23/17 16:02 TSH 1.003 mcIU/mL (0.350-4.840) 07/23/17 16:02 Urine Color Yellow (Yellow) 07/23/17 15:01 Urine Clarity Cloudy (Clear) A 07/23/17 15: Urine pH 6.0 pH Units (5.0-8.0) 07/23/17 15: Ur Specific [place] > 1.030 (1.010-1.025) H 07/23/17 15:01 Urine Protein Negative mg/dL (Neg-Trace) 07/23/17 15: Urine Glucose (UA) >=1000 mg/dL (Normal) H 07/23/17 15:01 Urine Ketones 15 mg/dL (Negative) H 07/23/17 15:01 Urine Blood Negative (Negative) 07/23/17 15:01 Urine Nitrite Negative (Negative) 07/23/17 15:01 Urine Bilirubin Negative (Negative) 07/23/17 15:01 Urine Urobilinogen Normal mg/dL (Normal) 07/23/17 15:01 Ur Leukocyte Esterase Negative (Negative) 07/23/17 15:01 Urine Microscopic RBC 0-3 per hpf (0-3) 07/23/17 15:01 Urine Microscopic WBC 0-3 per hpf (0-3) 07/23/17 15:01 Ur Squamous Epith Cells Many per lpf (None-Few) H 07/23/17 15:01 Urine Bacteria Few per hpf (None-Few) 07/23/17 15:01 Hyaline Casts None Seen per lpf (None-Few) 07/23/17 15:01 Urine Yeast Few per hpf (None Seen) H 07/23/17 15:01 Salicylates < 5.0 mg/dL (15-30) L 07/23/17 16:02 Urine Opiates Screen Negative ng/mL (Enjknq=205) 07/23/17 15:01 Acetaminophen < 1.0 mcg/mL (10-30) L 07/23/17 16:02 Ur Barbiturates Screen Negative ng/mL (Edculp=967) 07/23/17 15:01 Ur Phencyclidine Scrn Negative ng/mL (Cutoff=25) 07/23/17 15:01 Ur Amphetamines Screen Negative ng/mL (Mzrqkr=0768) 07/23/17 15:01 U Benzodiazepines Scrn Positive ng/mL (Pnpsjf=611) H 07/23/17 15:01 Urine Cocaine Screen Negative ng/mL (Cutoff= 300) 07/23/17 15:01 U Marijuana (THC) Screen Negative ng/mL (Cutoff = 50) 07/23/17 15:01 Ethyl Alcohol < 10 mg/dL (0-10) 07/23/17 16:02 Consult Discharge Plan - Plan Referrals: Marti Alonzo MD [Primary Care Provider] -
--- NOTE | 2017-07-24 14:24 | Discharge Summary ---
Date of Encounter: 07/24/17 Time of Encounter: 14:19 - Discharge Diagnosis (1) Chest pain Priority: Primary Status: Acute Comments: Nia Frost is a 52 y/o female with PMH depression, PTSD, seizure disorder, HTN and diabetes who presented to [facility] on 07/24/2017 with suicidal ideation. She reported chest pain in the ER and was placed in observation status for Psychiatric evaluation and ACS rule out. 1. Major depressive disorder, recurrent severe without psychotic features: Known history of anxiety and depression. Follows with Dr. Pollard. Evaluated by psychiatry who noted patient has severe depression and is actively suicidal; recommending inpatient psychiatric admission. Cont home Diazepam, Celexa ( [facility] reviewed 07/24/17 and has active rx for valium). Patient is medically clear and plan to discharge to a 2. Suicidal ideation: presented with thoughts of wanting to cut self with razor blade. Has known psychiatric hx. Cont 1:1 sitter till patient discharged to inpatient psych. 3. Chest pain: patient reported chest pain while in ER. EKG without acute ST changes, serial troponin negative. 10/2016 [facility] with minimal CAD. Suspect secondary to anxiety. Hold on further cardiac work-up. Cont ASA, recommend outpatient follow-up with PCP 4. Uncontrolled diabetes: Hgb 12%, likely secondary to diet non-compliance. Holding home oral hypoglycemics. SSI. Commend continuing to monitor blood sugar and titrate PRN Qualifiers: Chest pain type: unspecified Qualified Code(s): R07.9 - Chest pain, unspecified (2) Major depressive disorder, recurrent severe without psychotic features Priority: Primary Status: Acute (3) Diabetes mellitus Priority: Primary Status: Chronic Qualifiers: Diabetes mellitus type: type 2 Diabetes mellitus complication status: without complication Diabetes mellitus manager merchandise insulin use: without half-way use Qualified Code(s): E11.9 - Type 2 diabetes mellitus without complications - Discharge Medications Home Medications: Perphenazine [Trilafon] 8 mg PO HS #30 tablet 01/27/16 [Rx] glipiZIDE [Glucotrol] 10 mg PO BIDWM tablet 01/27/16 [Rx] metFORMIN [Glucophage] 1,000 mg PO BIDWM tablet 01/27/16 [Rx] Citalopram [CeleXA] 40 mg PO DAILY 10/19/16 [History] Lisinopril [Zestril] 20 mg PO BID 10/19/16 [History] Cyclobenzaprine [Flexeril] 10 mg PO TID PRN 07/23/17 [History] Ibuprofen [Motrin] 800 mg PO Q8HR 07/23/17 [History] Mirtazapine [Remeron] 15 mg PO HS 07/23/17 [History] Omeprazole [PriLOSEC] 20 mg PO DAILY 07/23/17 [History] Perphenazine [Trilafon] 2 mg PO QAM AND QHS 07/23/17 [History] diazePAM [Valium] 10 mg PO BID PRN 07/23/17 [History] hydrOXYzine HCl [Hydroxyzine HCl] 50 mg PO TID PRN 07/23/17 [History] Allergies/Adverse Reactions: 3 Allergy/AdvReac Type Severity Reaction Status Date / Time No Known Allergies Allergy Verified 04/16/16 01:48 Date of admission: 07/23/17 18:05 Primary care physician: Marti Wellington Consults: 07/24/17 00:28 Consult to Physical Therapy [CONS] Routine Comment: Evaluate, develop and implement POC Reason for Consult: weakness Discharging clinician: Gloria Conti Anticipated date of discharge: 07/24/17 - Patient Status Disposition: Transfer Psychiatric Hosp Functional capacity at discharge: independent ambulation Overall status at discharge: patient is progressing back to baseline - Discharge Instructions Follow Up With: Marti Alonzo MD [Primary Care Provider] - - Diet and Activity Activity: resume usual activities as tolerated Diet: diabetic diet, low fat, low cholesterol Interval History: Patient was admitted 07/24/2017 with chest pain and suicidal ideation. She was evaluated by psychiatry who noted patient was actively suicidal with severe depression and patient psychiatric stay was recommended. She was discharged to [place]'s inpatient psych unit. Hospital course: See assessment and plan for hospital course Time spent discussing smoking cessation with patient: 3 to 10 minutes - Time Spent with Patient Total time spent providing and/or coordinating discharge services: - Constitutional Vitals: Temp Pulse Resp BP Pulse Ox 97.9 F 90 18 122/74 96 07/24/17 11:59 07/24/17 11:59 07/24/17 11:59 07/24/17 11:59 07/24/17 11:59 General appearance: Present: disheveled, A&O X 3, no acute distress, obese - Head Head exam: Present: atraumatic, normocephalic - Eye Eye exam: Present: PERRL, conjuntiva pink, sclera anicteric Pupils: Present: PERRL - Neck Neck exam general surgery: Present: supple, trachea midline. Absent: lymphadenopathy - Respiratory Respiratory exam: Present: CTAB. Absent: accessory muscle use, rales, rhonchi, wheezes - Cardiovascular Cardiovascular exam: Present: RRR, +S1, +S2. Absent: diastolic murmur, gallop, rubs, systolic murmur - GI/Abdominal GI/Abdominal exam: Present: normal bowel sounds, soft, no peritoneal signs. Absent: distended, tenderness - Extremities Exam Extremities exam: Present: warm, radial pulses palpable and symmetrical. Absent : calf tenderness, cyanotic, pedal edema - Neurological Exam Neurological exam: Present: CN II-XII intact, oriented X3, no focal deficits. Absent: pronater drift, facial droop, speech deficit - Skin Skin exam: Present: dry, intact
[2017-07-24] MEDS ORDERED: Mirtazapine 15 MG TABLET PO SCH (21:00)
[2017-07-26 17:44] LABS: CK-MB (CK isoenzymes) 0 % (0-4); CK-MM (CK-isoenzymes) 100 % (96-100)
[2017-07-26 17:44] LABS: CK-MB (CK isoenzymes) 0 % (0-4); CK-MM (CK-isoenzymes) 100 % (96-100)
[2017-07-27 07:12] LABS: CK Total (Ck Isoenzymes) 29 U/L (20-180); CK-BB (CK isoenzymes) 0 % (0-0)
[2017-07-27 07:13] LABS: CK Total (Ck Isoenzymes) 26 U/L (20-180); CK-BB (CK isoenzymes) 0 % (0-0)
== END 2017-07-24 18:27 ==
LOC: 3BNU 14:53 → EMEROO 14:53 → 3BNU 18:56
PROVIDERS: ADMIT Hospitalist; ATTEND Registered Nurse

== ENCOUNTER 2017-07-24 18:34 | Observation (INO) ==
[2017-07-24] MEDS ORDERED: *HR* LORazepam 1 MG TABLET PO PRN (19:05)
[2017-07-24] MEDS ORDERED: traZODone 50 MG TABLET PO PRN (19:05)
[2017-07-24] MEDS ORDERED: MOM Conc 10 ML UD.LIQ PO PRN (19:05)
[2017-07-24] MEDS ORDERED: Haloperidol Lactate 5 MG/ML VIAL IM PRN (19:05)
[2017-07-24] MEDS ORDERED: Ibuprofen 400 MG TABLET PO PRN (19:05)
[2017-07-24] MEDS ORDERED: *HR* LORazepam 2 MG/ML VIAL IM PRN (19:05)
[2017-07-24] MEDS ORDERED: Mag Hydrox/Al Hydrox/Simeth 30 ML UDC PO PRN (19:05)
[2017-07-24] MEDS ORDERED: hydrOXYzine pamoate 25 MG CAPSULE PO PRN ×2 (19:05→19:09)
[2017-07-24] MEDS ORDERED: Dextrose Gel 15 GM PO PRN ×2 (19:12)
[2017-07-24] MEDS ORDERED: Insulin LISPRO 300 UNITS/3 ML VIAL SQ SCH (21:00)
[2017-07-24] MEDS ORDERED: Mirtazapine 15 MG TABLET PO SCH (21:00)
[2017-07-24] MEDS: Lisinopril 20 MG TABLET PO SCH (21:23)
[2017-07-24] MEDS: Perphenazine 8 MG TABLET PO SCH ×2 (21:29→21:56)
[2017-07-24] MEDS: Perphenazine 2 MG TABLET PO SCH ×2 (21:29→21:57)
[2017-07-24] MEDS: diazePAM 10 MG TABLET PO PRN (21:54)
[2017-07-25] MEDS: Ibuprofen 800 MG TABLET PO SCH ×2 (00:32→08:23)
[2017-07-25] MEDS ORDERED: Insulin LISPRO 300 UNITS/3 ML VIAL SQ SCH (07:30)
[2017-07-25] MEDS ORDERED: *HR* GlipiZIDE 5 MG TABLET PO SCH (08:00)
[2017-07-25] MEDS ORDERED: *HR* Metformin 500 MG TABLET PO SCH (08:00)
[2017-07-25] MEDS: Lisinopril 20 MG TABLET PO SCH (08:24)
[2017-07-25] MEDS: Perphenazine 2 MG TABLET PO SCH (08:25)
[2017-07-25] MEDS: diazePAM 10 MG TABLET PO PRN (08:45)
--- NOTE | 2017-07-25 10:13 | Discharge Summary ---
Date of Encounter: 07/25/17 Time of Encounter: 09:25 History of Present Illness Chief complaint: "I was depressed." Admitted From: Intrahospital Transfer History of Present Illness: Ms. Frost is a 52 year old female with a history of depression and anxiety as well as personality disorder who presented to the hospital with suicidal ideations but was also having chest pains. She was ultimately admitted to the medical floor and cleared from a cardiovascular standpoint. Patient was reporting intermittent vague suicidal ideations. She was transferred to hospital for behavioral medicine for psychiatric stabilization. Patient does have chronic intermittent suicidal ideations but they worsened over the past week and a half because it was the anniversary of a family member's and she also found out that her brother has cancer. Patient felt very overwhelmed and sad by all of these difficult things and started to think of wanting to kill herself. However, since admission this has been improving slowly. She does feel supported by her . Today she denies suicidal ideations. Other than her last couple of weeks which have been stressful patient feels her medications have been working. She does have some anxiety and difficulty sleeping at times but these have been chronic issues and overall she feels she is doing better than prior to starting the meds. She slept well last night in the hospital. She has been interactive with peers and staff. Patient denies auditory or visual hallucinations. She denies grandiosity, decreased need for sleep, impulsivity. Past Med Surg Social Fam HX - Past Medical History Medical history: arthritis, diabetes, GERD, hyperlipidemia, hypertension, seizures, other - Past Psychiatric History Psychiatric history: Reports: anxiety, depression, previous psychiatric hospitalization Past psychiatric history details: Patient has multiple previous admissions for suicidal ideations. Currently does have outpatient psychiatrist but no therapist. Family psychiatric history: Yes Family Psychiatric History Details: Multiple family members have depression. Family History of Suicide: None - Past Surgical History Surgical History: appendectomy, , cholecystectomy, hysterectomy, other - Social History Smoking Status: Never smoker Smokeless Tobacco Status: No Alcohol use: none Drug use: none Current living situation: Home - Independent, With Family Activity Level: Independent ambulation - Family History Father Living Status: Hx Family Cardiac Disorders: Yes Hx Family Endocrine Disorder: Yes Mother Living Status: Hx Family Cardiac Disorders: Yes Hx Family Respiratory Disorders: Yes (COPD) Hx Family Endocrine Disorder: Yes Medications - Discharge Medications Perphenazine [Trilafon] 8 mg PO HS #30 tablet 01/27/16 [Rx] glipiZIDE [Glucotrol] 10 mg PO BIDWM tablet 01/27/16 [Rx] metFORMIN [Glucophage] 1,000 mg PO BIDWM tablet 01/27/16 [Rx] Citalopram [CeleXA] 40 mg PO DAILY 10/19/16 [History] Lisinopril [Zestril] 20 mg PO BID 10/19/16 [History] Cyclobenzaprine [Flexeril] 10 mg PO TID PRN 07/23/17 [History] Ibuprofen [Motrin] 800 mg PO Q8HR 07/23/17 [History] Mirtazapine [Remeron] 15 mg PO HS 07/23/17 [History] Omeprazole [PriLOSEC] 20 mg PO DAILY 07/23/17 [History] Perphenazine [Trilafon] 2 mg PO QAM AND QHS 07/23/17 [History] diazePAM [Valium] 10 mg PO BID PRN 07/23/17 [History] hydrOXYzine HCl [Hydroxyzine HCl] 50 mg PO TID PRN 07/23/17 [History] 3 Allergy/AdvReac Type Severity Reaction Status Date / Time No Known Allergies Allergy Verified 04/16/16 01:48 Review of Systems Constitutional: Denies: fever, chills, weakness, weight change Eyes: Denies: eye pain, vision change Ears, Nose, Throat: Denies: ear pain, throat pain, dental pain, hearing loss, congestion Cardiovascular: Denies: chest pain, palpitations, dyspnea on exertion Respiratory: Denies: cough, dyspnea, wheezes Gastrointestinal: Denies: abdominal pain, nausea, vomiting, diarrhea, constipation Genitourinary male: Denies: urgency, dysuria, frequency, genital lesions Genitourinary female: Denies: urgency, dysuria, frequency, abnormal menses, dyspareunia Musculoskeletal: Denies: joint swelling, joint pain Integumentary: Denies: rash, lesions, pruritus Neurological: Denies: headache, weakness, numbness, memory loss Psychiatric: Reports: depression, anxiety, abnormal sleep pattern. Denies: suicidal ideation, difficulty concentrating, hopelessness, irritability, mood swings, panic attacks Endocrine: Denies: fatigue, heat or cold intolerance Hematologic/Lymphatic: Denies: easy bruising, lymphadenopathy Allergic/Immunologic: Denies: urticaria, itchy eyes Mental Status Exam - Mental Status Exam Patient orientation: Yes Person, Yes Time, Yes Place Level of alertness: Alert Patient appearance: Appropriate, Well Groomed Behavior: calm, cooperative Psychomotor activity: Normal Eye contact: Maintains Eye Contact Mood description: Euthymic/stable Affect description: congruent with mood, full range Speech pattern: Normal rate, Normal rhythm, Normal tone Speech Volume: Normal Thought process: Linear, Goal Oriented Thought Content: No Suicidal ideation, No Homicidal ideation, No Overt delusions Perceptual Disturbances: No Auditory hallucinations, No Visual hallucinations Judgment: Limited Insight: Partial Results - Vital Signs Vital signs: Temp Pulse Resp BP 97.9 F 98 16 131/80 07/24/17 20:51 07/24/17 20:51 07/24/17 20:51 07/24/17 20:51 - Labs Labs: Laboratory Last Values POC Glucose 281 (58-89) H 07/25/17 08:22 Diagnosis - Discharge Diagnosis (1) Major depressive disorder, recurrent severe without psychotic features Status: Acute (2) Anxiety Status: Chronic (3) Personality disorder Status: Chronic Assessment and Plan - Patient/Caregiver Discharge Instructions Activity: resume usual activities as tolerated Diet: regular diet - Follow up Plan Follow up with: [facility] [Outside] - 07/30/17 2:40 pm (The above appointment is with Dr. Schultz for outpatient psychiatric assessment and medication management services. Please arrive 10 minutes early to all appointments to complete the check-in process. Please bring your insurance card (or [facility] award letter) and photo ID. If you are unable to keep any scheduled appointment, 24 hour business notice of cancellation is expected. The above appointment(s) reflects first availability. You may contact the office regularly to check for cancellations that may allow you to be seen sooner. ) [facility] [Outside] (The above appointment is with ) Functional capacity at discharge: independent ambulation Overall status at discharge: Stable Disposition: Home, Self-Care Provider Date of admission: 07/24/17 18:34 Primary care physician: PCP NONE Discharging clinician: Beatrice Schultz Hospital Course Hospital course: Ms. Frost is a 52 year old female with a history of depression, anxiety, personality disorder who presented to the hospital with suicidal ideation and chest pain. She was initially admitted to the medical floor and then transferred to hospital for behavioral medicine for psychiatric stabilization. Patient admits that she had a lot of stressful situations going on recently prior to the past couple of weeks she had been doing well with her medications and her mood overall. Since being admitted she has started to have improvement in her suicidal ideation. Since patient was admitted to the psychiatric floor she states that she does not have any desire to hurt herself. "I was just having a bad couple of weeks. " Patient is willing to continue with her outpatient treatment and has a follow -up appointment with this provider on 07/30/2017 at 2:40 PM. She also will follow up with a therapist to work on positive coping strategies to deal with stressors. Throughout the course of hospital stay the patient's mood improved. She is willing to return to the hospital if her symptoms worsen. She is discharged in stable condition. - Time Spent with Patient Total time spent providing and/or coordinating discharge services: Less than 30 minutes Procedures - Procedures Procedures: Medication Management, Crisis Stabilization, Supportive Therapy, Group Therapy, Psychoeducational Therapy Quality - Multiple Antipsychotics Patient discharged on 2 or more antipsychotic medications: No
[2017-07-25 10:45] VITALS: BP 140/100
== END 2017-07-25 10:05 | disposition home or self-care (01) ==
LOC: INTOOBSV 18:34 → 1ANU 18:34 → UNDODISIN 07-25 10:45
PROVIDERS: ADMIT Student in an Organized Health Care Education/Training Program; ATTEND Student in an Organized Health Care Education/Training Program

== ENCOUNTER 2017-09-07 04:25 | Observation (INO) ==
[2017-09-07] MEDS ORDERED: Nitroglycerin 0.4 MG TAB.SUBL SL ONE (04:35)
[2017-09-07] MEDS ORDERED: Aspirin 81 MG TAB.CHEW PO ONE (04:35)
[2017-09-07 05:00] LABS: Basophils # 0.1 K/mcL (0.0-0.2); Basophils % 0.7 %; Eosinophils # 0.2 K/mcL (0.0-0.6); Eosinophils % 1.8 %; Hematocrit 40.7 % (35.3-44.9); Hemoglobin 13.1 g/dL (11.5-15.4); Immature Granulocytes % 0.8 % (0-4); Immature Platelets 5.5 % (1.1-6.1); Lymphocytes # 4.5 K/mcL (0.6-4.6); Lymphocytes % 42.6 %; Mean Corpuscular HGB Conc 32.2 g/dL (31.6-35.5); Mean Corpuscular Hemoglobin 25.1 pg (28.0-33.3); Mean Platelet Volume 10.5 fL (9.4-12.4); Monocytes # 0.4 K/mcL (0.0-1.3); Monocytes % 3.6 %; Neutrophils # 5.3 K/mcL (1.6-8.9); Platelet Count 264 K/mcL (140-400); Red Blood Count 5.22 M/mcL (3.82-4.97); Red Cell Distribution Width 15.7 % (11.5-14.5); Segmented Neutrophils % 50.5 %
[2017-09-07 05:11] LABS: BUN/Creatinine Ratio 13 (6-26); Blood Urea Nitrogen 13 mg/dL (7-20); Calcium 9.1 mg/dL (8.6-10.8); Carbon Dioxide 18 mEq/L (19-29); Chloride 97 mEq/L (98-109); Osmolality,Calculated 293 (280-300); Potassium 3.7 mEq/L (3.5-4.5); Sodium 130 mEq/L (136-145); eGFR For African Americans > 60 (> 60); eGFR For Non-African Americans 58 (> 60)
[2017-09-07 05:14] LABS: Glucose 512 mg/dL (70-99)
[2017-09-07] MEDS ORDERED: 0.9 % Sodium Chloride 1,000 ML IVC ONE (06:00)
[2017-09-07] MEDS ORDERED: *HR* LORazepam 2 MG/ML VIAL IVP ONE (06:01)
[2017-09-07] MEDS ORDERED: Ondansetron 4 MG/2 ML VIAL IVP ONE ×3 (06:01→08:14)
[2017-09-07] MEDS ORDERED: *HR* HYDROmorphone (PF) 1 MG/ML SYRINGE IVP ONE (06:17)
--- NOTE | 2017-09-07 06:26 | Emergency Department Note ---
Disposition Clinical Impression: Chest pain Qualifiers: Chest pain type: unspecified Qualified Code(s): R07.9 - Chest pain, unspecified Disposition: Admitted As Inpatient Condition: Good Referrals: Marti Alonzo MD [Primary Care Provider] - Forms: ED Satisfaction Letter Chest Pain HPI - General Chief Complaint: ED Chest Pain Stated Complaint: CP,NV Time Seen by Provider: 09/07/17 04:35 Source: patient Limitations: no limitations Vital Signs Reviewed: Yes Nursing Notes Reviewed: Yes - History of Present Illness HPI Narrative: Patient is here for evaluation of chest pain that woke her up from her sleep. Patient describes a substernal pressure with radiation to the shoulder and jaw. Patient states symptoms happened just prior to arrival. Approximately [address] Patient has had similar in the past. Patient had a negative heart catheter in October. Patient has also been diagnosed anxiety and depression. Patient's brother was recently diagnosed medical problems. Nonspecifically better or worse with exertion. Patient will undergo further cardiac workup at this time. Severity scale (1-10): 9 - Related Data Home Medications Medication Instructions Recorded Confirmed Citalopram [CeleXA] 40 mg PO DAILY 10/19/16 07/24/17 Lisinopril [Zestril] 20 mg PO BID 10/19/16 07/24/17 Cyclobenzaprine [Flexeril] 10 mg PO TID PRN 07/23/17 07/24/17 Ibuprofen [Motrin] 800 mg PO Q8HR 07/23/17 07/24/17 Mirtazapine [Remeron] 15 mg PO HS 07/23/17 07/24/17 Omeprazole [PriLOSEC] 20 mg PO DAILY 07/23/17 07/24/17 Perphenazine [Trilafon] 2 mg PO QAM AND QHS 07/23/17 07/24/17 diazePAM [Valium] 10 mg PO BID PRN 07/23/17 07/24/17 hydrOXYzine HCl [Hydroxyzine HCl] 50 mg PO TID PRN 07/23/17 07/24/17 Previous Rx's Medication Instructions Recorded Perphenazine [Trilafon] 8 mg PO HS #30 tablet 01/27/16 glipiZIDE [Glucotrol] 10 mg PO BIDWM tablet 01/27/16 metFORMIN [Glucophage] 1,000 mg PO BIDWM tablet 01/27/16 Allergies Allergy/AdvReac Type Severity Reaction Status Date / Time butorphanol [From Stadol] Allergy Hives Verified 09/07/17 04:31 Review of Systems: CONSTITUTIONAL: Diaphoresis No weight loss, fever, chills, weakness or fatigue. HEENT: Eyes: No visual changes. Ears, Nose, Throat: No hearing loss, difficulty talking or unable to swallow. SKIN: No rash or itching. CARDIOVASCULAR: Chest pain RESPIRATORY: No shortness of breath, cough or sputum. GASTROINTESTINAL: Nausea and vomiting 1 episode of nonbloody nonbilious. GENITOURINARY: No burning on urination or hematuria. NEUROLOGICAL: No headache, dizziness, syncope, paralysis, ataxia, numbness or tingling in the extremities. No change in bowel or bladder control. MUSCULOSKELETAL: No muscle pain, back pain, joint pain or stiffness. Chest Pain PMH - Past Medical History Medical history: Reports: arthritis, diabetes, GERD, hyperlipidemia, hypertension, seizures, other Surgical history: Reports: appendectomy, , cholecystectomy, hysterectomy, other Psychiatric history: Reports: anxiety, depression, previous psychiatric hospitalization [employer] history: Reports: bilateral tubal ligation - Social History Smoking Status: Never smoker Alcohol use: Reports: none Drug use: Reports: none Physical Exam General: Well appearing, nontoxic, no acute distress Head: Normocephalic Atraumatic Eyes: PERRL, EOMI ENT: Airway patent, no stridor Neck: supple, no meningismus Chest: Lungs clear to auscultation bilateral Cardiac: Tachycardic Regular rhythm, no murmurs, rubs or gallops; pain with inspiration Abdomen: soft, nontender, nondistended; no guarding, rebound, or tenderness to percussion Musculoskeletal: Calves symmetric, nontender, no palpable cord Skin: No rash, normal skin tone Neuro: Alert and Oriented to person, place, and time; No focal deficit, CN 2-12 symmetric and intact - General Limitations: no limitations General appearance: alert Course - Reevaluation(s) Reevaluation #1: D-dimer elevated. Will order CTA. Reevaluation #2: CTA negative. Patient initially had some relief with nitroglycerin. Patient has been given Ativan as well as fluids and antiemetics. Symptoms only partially improved. - Consultations Consultation #1: Dr. Wilson accepts. Vital Signs Temperature 98.3 F 09/07/17 04:25 Pulse Rate 109 09/07/17 04:25 Respiratory Rate 18 09/07/17 04:25 Blood Pressure 146/89 09/07/17 04:25 O2 Sat by Pulse Oximetry 96 09/07/17 04:25 Temperature 98.3 F 09/07/17 04:25 Pulse Rate 101 09/07/17 06:45 Respiratory Rate 18 09/07/17 06:45 Blood Pressure 134/74 09/07/17 06:45 O2 Sat by Pulse Oximetry 95 09/07/17 06:45 Oxygen Delivery Oxygen Delivery Room Air Chest Pain - Lab Data Result diagrams: 09/07/17 04:50 09/07/17 04:50 Lab Results 09/07/17 09/07/17 09/07/17 Range/Units 04:50 04:50 04:50 WBC 10.5 (4.3-11.1) K/mcL RBC 5.22 H (3.82-4.97) M/mcL Hgb 13.1 (11.5-15.4) g/dL Hct 40.7 (35.3-44.9) % MCV 78.0 L (83.0-100.0) fL MCH 25.1 L (28.0-33.3) pg MCHC 32.2 (31.6-35.5) g/dL RDW 15.7 H (11.5-14.5) % Plt Count 264 (140-400) K/mcL MPV 10.5 (9.4-12.4) fL Immature Gran % 0.8 (0-4) % Seg Neutrophils % 50.5 % Lymphocytes % 42.6 % Monocytes % 3.6 % Eosinophils % 1.8 % Basophils % 0.7 % Neutrophils # 5.3 (1.6-8.9) K/mcL Lymphocytes # 4.5 (0.6-4.6) K/mcL Monocytes # 0.4 (0.0-1.3) K/mcL Eosinophils # 0.2 (0.0-0.6) K/mcL Basophils # 0.1 (0.0-0.2) K/mcL Immature Plt Fraction 5.5 (1.1-6.1) % D-Dimer (0-500) ng/mLFEU Sodium 130 L (136-145) mEq/L Potassium 3.7 (3.5-4.5) mEq/L Chloride 97 L (98-109) mEq/L Carbon Dioxide 18 L (19-29) mEq/L BUN 13 (7-20) mg/dL Creatinine 1.01 (0.57-1.11) mg/dL Est GFR ( Amer) > 60 (> 60) Est GFR (Non-Af Amer) 58 L (> 60) BUN/Creatinine Ratio 13 (6-26) Glucose 512 H* (70-99) mg/dL Calculated Osmolality 293 (280-300) Calcium 9.1 (8.6-10.8) mg/dL Troponin I 0.00 (0-0.03) ng/mL 09/07/17 Range/Units 04:50 WBC (4.3-11.1) K/mcL RBC (3.82-4.97) M/mcL Hgb (11.5-15.4) g/dL Hct (35.3-44.9) % MCV (83.0-100.0) fL MCH (28.0-33.3) pg MCHC (31.6-35.5) g/dL RDW (11.5-14.5) % Plt Count (140-400) K/mcL MPV (9.4-12.4) fL Immature Gran % (0-4) % Seg Neutrophils % % Lymphocytes % % Monocytes % % Eosinophils % % Basophils % % Neutrophils # (1.6-8.9) K/mcL Lymphocytes # (0.6-4.6) K/mcL Monocytes # (0.0-1.3) K/mcL Eosinophils # (0.0-0.6) K/mcL Basophils # (0.0-0.2) K/mcL Immature Plt Fraction (1.1-6.1) % D-Dimer 675 H (0-500) ng/mLFEU Sodium (136-145) mEq/L Potassium (3.5-4.5) mEq/L Chloride (98-109) mEq/L Carbon Dioxide (19-29) mEq/L BUN (7-20) mg/dL Creatinine (0.57-1.11) mg/dL Est GFR ( Amer) (> 60) Est GFR (Non-Af Amer) (> 60) BUN/Creatinine Ratio (6-26) Glucose (70-99) mg/dL Calculated Osmolality (280-300) Calcium (8.6-10.8) mg/dL Troponin I (0-0.03) ng/mL Attestation Statement - Attestation Attestation: Dr. Sifuentes note: Patient was seen in conjunction with the resident Dr. Newman. Please see his charting for complete documentation. I spent [id number] time with the patient and agree with patient's treatment and disposition. Patient has had pain for 2-3 hours' sleep. Described as pressure but there is also a pleuritic component. Initial testing in the ER is negative. Blood sugars were running high and she is a uncontrolled diabetic. Admitted to the hospitalist in stabilized and improved condition
[2017-09-07] MEDS ORDERED: *HR* Enoxaparin 120 MG/0.8 ML SYRINGE SQ STA (06:38)
[2017-09-07] MEDS ORDERED: Insulin Regular, Human 100 UNIT/ML SQ ONE (06:43)
--- NOTE | 2017-09-07 06:49 | Emergency Department Note ---
START Narrative - START START: EKG shows sinus tachycardia with nonspecific T-wave abnormalities. Pituitary 109. LA interval 151. QRS 81. QTC 411. No significant changes from previous of 07/23/2017.
[2017-09-07 06:50] LABS: Bilirubin,Urine Negative (Negative); Blood,Urine Negative (Negative); Clarity,Urine Clear (Clear); Color,Urine Yellow (Yellow); Glucose,Urine (UA) >=1000 mg/dL (Normal); Ketones,Urine Negative (Negative); Leukocyte Esterase,Urine Negative (Negative); Nitrite,Urine Negative (Negative); PH,Urine 6.5 pH Units (5.0-8.0); Protein,Urine Negative (Neg-Trace); Specific Gravity,Urine > 1.030 (1.010-1.025); Urobilinogen,Urine Normal (Normal)
[2017-09-07] MEDS ORDERED: Naloxone 0.4 MG/ML INJ IVP PRN (07:57)
[2017-09-07] MEDS ORDERED: *HR* Dextrose 50 % in Water (Syg) 50 ML SYRINGE IVP PRN (08:03)
[2017-09-07] MEDS ORDERED: D5% in Water 1,000 ML IVC PRN (08:03)
[2017-09-07] MEDS ORDERED: Dextrose Gel 15 GM PO PRN ×2 (08:03)
--- NOTE | 2017-09-07 08:15 | Internal Med History&Physical ---
Date of Encounter: 09/07/17 Time of Encounter: 08:00 Assessment and Plan (1) Chest pain Current visit: Yes Status: Acute Atypical. Has history of LHC less than one year ago which did not show any coronary disease. CTA could not rule out PE in ED given poorly times bolus - given tachycardia, elevated D-dimer and pleuritic pain will obtain venous dopplers. Received empiric SQ lovenox 1mg/kg in the ED. If dopplers negative will plan for VQ scan. Likely her chest pain is related to anxiety. Will treat with ativan (takes ativan and valium at home). - Trend troponin - Dopplers of legs - VQ if dopplers negative Qualifiers: Chest pain type: unspecified Qualified Code(s): R07.9 - Chest pain, unspecified (2) Anxiety Current visit: No Status: Acute Acute on chronic issue. Denies SI. - Ativan PRN, continue home SSRI and scheduled valium (3) Hyperglycemia Current visit: No Status: Acute DM2, on metformin and glipizide. BG 500 in ED. PCP was planning to discuss insulin with patient in near future. - SSI - Hold PO agents while admitted Internal Medicine - H&P: HPI Chief complaint: Chest pain Admitted From: Emergency Dept Plans for Post Hospital Care: Home History of present illness: Ms. Frost is a 52 year old female with history of poorly controlled diabetes, severe anxiety who presented to the ED this morning with complaint of chest pain which woke her from sleep. The pain is located in the left anterior chest and is stabbing and pressure like in nature, was 10/10 intensity initially but has improved to 8/10 in the ED after receiving SL nitro and IV ativan. The pain radiates to the jaw and left arm. She has had similar but less severe chest pain in the past - she relates it to anxiety, notes that it typically develops when she is acutely stressed. She has been more stressed than normal lately, as she found out her brother has renal cancer. She has a history of admissions for suicidal ideation but states that currently she has no suicidal ideation. She has been vomiting, notes that the vomiting begins when she develops chest pain. She had a LHC 10/2016 which was negative for CAD. In the ED she was tachycardic and had elevated D dimer so a CTA was performed which showed no large central PE, but timing was poor and PE cannot be ruled out. She states her chest pain is worse with deep inspiration, she denies history of blood clots. Past Med Surg Social Fam HX - Past Medical History Medical history: arthritis, diabetes, GERD, hyperlipidemia, hypertension, seizures, other Psychiatric history: anxiety, depression, previous psychiatric hospitalization - Past Surgical History Surgical History: appendectomy, , cholecystectomy, hysterectomy, other - Social History Smoking Status: Never smoker Smokeless Tobacco Status: No Alcohol use: none Drug use: none - Family History Father Living Status: Hx Family Cardiac Disorders: Yes Hx Family Endocrine Disorder: Yes Mother Living Status: Hx Family Cardiac Disorders: Yes Hx Family Respiratory Disorders: Yes (COPD) Hx Family Endocrine Disorder: Yes Internal Medicine - H&P: Meds Perphenazine [Trilafon] 8 mg PO HS #30 tablet 01/27/16 [Rx] glipiZIDE [Glucotrol] 10 mg PO BIDWM tablet 01/27/16 [Rx] metFORMIN [Glucophage] 1,000 mg PO BIDWM tablet 01/27/16 [Rx] Citalopram [CeleXA] 40 mg PO DAILY 10/19/16 [History] Lisinopril [Zestril] 20 mg PO BID 10/19/16 [History] Cyclobenzaprine [Flexeril] 10 mg PO TID PRN 07/23/17 [History] Ibuprofen [Motrin] 800 mg PO Q8HR 07/23/17 [History] Omeprazole [PriLOSEC] 20 mg PO DAILY 07/23/17 [History] Perphenazine [Trilafon] 2 mg PO QAM AND QHS 07/23/17 [History] diazePAM [Valium] 10 mg PO BID PRN 07/23/17 [History] hydrOXYzine HCl [Hydroxyzine HCl] 50 mg PO TID PRN 07/23/17 [History] Mirtazapine [Remeron] 30 mg PO DAILY 09/07/17 [History] 3 Allergy/AdvReac Type Severity Reaction Status Date / Time butorphanol [From Stadol] Allergy Hives Verified 09/07/17 04:31 All Systems PM: A 10-system review of systems was performed and is negative for pertinent findings except as documented above in the HPI. - Constitutional Constitutional: no fever(s) - Cardiovascular Cardiovascular ROS IM: chest pain, diaphoresis - Respiratory Respiratory: pain on inspiration - Gastrointestinal Gastrointestinal: nausea, vomiting, no diarrhea - Integumentary Integumentary IM: no rash - Neurological Neurological ROS: no confusion - Psychiatric Psychiatric: no suicidal ideation - Constitutional Vitals: Temp Pulse Resp BP Pulse Ox 98.3 F 101 18 134/74 95 09/07/17 04:25 09/07/17 06:45 09/07/17 06:45 09/07/17 06:45 09/07/17 06:45 General appearance: Present: A&O X 3, no acute distress - Head Head exam: Present: atraumatic - Eye Eye exam: Present: EOMI, sclera anicteric - ENT ENT exam: Present: mucous membranes moist - Neck Neck exam general surgery: Present: supple - Respiratory Respiratory exam: Present: CTAB - Cardiovascular Cardiovascular exam: Present: RRR. Absent: diastolic murmur, gallop, rubs, systolic murmur - GI/Abdominal GI/Abdominal exam: Present: normal bowel sounds, soft. Absent: distended, tenderness - Extremities Exam Extremities exam: Absent: pedal edema - Neurological Exam Neurological exam: Present: no focal deficits - Skin Skin exam: Absent: rash Internal Med - H&P Results - Labs CBC & Chem 7: 09/07/17 04:50 09/07/17 04:50 - EKG Data -: EKG Interpreted by Myself (Sinus tach, Rate 109. Poor R wave prog. No ischemic ST or T wave changes)
[2017-09-07] MEDS ORDERED: Ondansetron 4 MG/2 ML VIAL ONE ×2 (08:24→08:28)
[2017-09-07] MEDS ORDERED: *HR* Morphine 2 MG/ML SYRINGE IVP ONE ×2 (09:24→18:56)
[2017-09-07] MEDS: Mirtazapine 15 MG TABLET PO SCH (09:43)
[2017-09-07] MEDS: Lisinopril 20 MG TABLET PO SCH ×2 (09:44→20:27)
[2017-09-07] MEDS: Perphenazine 2 MG TABLET PO SCH ×2 (11:25→20:27)
[2017-09-07] MEDS: diazePAM 10 MG TABLET PO PRN ×2 (11:25→20:27)
[2017-09-07] MEDS: Ondansetron ODT 4 MG TAB.RAPDIS SL PRN (11:26)
[2017-09-07] MEDS: Insulin LISPRO 300 UNITS/3 ML VIAL SQ SCH ×2 (11:26→17:28)
[2017-09-07] MEDS: *HR* Promethazine 25 MG/ML VIAL IVP PRN (12:40)
[2017-09-07] MEDS: Ibuprofen 800 MG TABLET PO SCH ×2 (15:05→23:37)
[2017-09-07] MEDS: *HR* Enoxaparin 120 MG/0.8 ML SYRINGE SQ SCH (17:23)
[2017-09-07] MEDS: *HR* LORazepam 2 MG/ML VIAL IVP PRN ×2 (17:28→23:36)
--- NOTE | 2017-09-07 17:41 | Electrocardiograph Report ---
[place] [id number] Test Date: 2017-09-07 Pat Name: Nia Fordland Department: 102 Room: 3B36 Gender: F Blade Filer: : 1965 Requested By: Jerzy Sifuentes Order Number: [id number] Reading MD: Husam Kimbrough DO Measurements Intervals [place] Rate: 109 P: 58 GA: 151 QRS: -10 QRSD: 81 T: 84 QT: 347 QTc: 411 Interpretive Statements Sinus tachycardia Poor R wave progression Nonspecific ST-T changes Electronically Signed On 09-07-2017 17:08:44 EST by Husam Kimbrough DO
[2017-09-07] MEDS: Perphenazine 8 MG TABLET PO SCH (20:27)
[2017-09-07] MEDS: hydrOXYzine pamoate 25 MG CAPSULE PO PRN (20:33)
[2017-09-07] MEDS ORDERED: Insulin LISPRO 300 UNITS/3 ML VIAL SQ SCH (21:00)
[2017-09-08] MEDS: *HR* Enoxaparin 120 MG/0.8 ML SYRINGE SQ SCH (05:52)
[2017-09-08] MEDS: *HR* LORazepam 2 MG/ML VIAL IVP PRN ×2 (05:52→14:17)
[2017-09-08] MEDS: Ibuprofen 800 MG TABLET PO SCH ×2 (08:57→17:12)
[2017-09-08] MEDS: Perphenazine 2 MG TABLET PO SCH ×2 (08:57→21:20)
[2017-09-08] MEDS: Lisinopril 20 MG TABLET PO SCH ×2 (08:57→21:28)
[2017-09-08] MEDS: *HR* Promethazine 25 MG/ML VIAL IVP PRN ×2 (08:58→21:21)
[2017-09-08] MEDS: Insulin LISPRO 300 UNITS/3 ML VIAL SQ SCH ×4 (08:59→17:17)
[2017-09-08] MEDS: Mirtazapine 15 MG TABLET PO SCH (09:00)
[2017-09-08] MEDS: hydrOXYzine pamoate 25 MG CAPSULE PO PRN (09:11)
[2017-09-08] MEDS ORDERED: Insulin LISPRO 300 UNITS/3 ML VIAL SQ SCH ×4 (12:31→16:52)
[2017-09-08] MEDS ORDERED: Insulin LISPRO 300 UNITS/3 ML VIAL SQ ONE (14:35)
--- NOTE | 2017-09-08 16:53 | Internal Med Progress Note ---
Date of Encounter: 09/08/17 Time of Encounter: 16:51 - Assessment and plan (1) Chest pain Current Visit: Yes Status: Acute Assessment and plan: ruled out ACS negative troponin no acute EKG changes r/o PE.. V/Q scan negative for PE cont home meds Qualifiers: Chest pain type: unspecified Qualified Code(s): R07.9 - Chest pain, unspecified (2) Hyperglycemia Current Visit: No Status: Acute Assessment and plan: Her BS are still not well controlled she is high risk for hyperglycemic coma and further complications not safe to d/c her home today changed Insulin regimen cont close monitoring (3) Uncontrolled diabetes mellitus Current Visit: Yes Status: Acute Assessment and plan: Noticed her HbA1C was 12.8 on 07/24..it may be worsened now repeat HbA1C now started her on Regular insulin 10 U with each meal TID + Medium ISS Also started her on Levemir 20 U BID Qualifiers: Qualified Code(s): E11.65 - Type 2 diabetes mellitus with hyperglycemia (4) GERD (gastroesophageal reflux disease) Current Visit: No Status: Acute Assessment and plan: on PPI Qualifiers: Esophagitis presence: without esophagitis Qualified Code(s): K21.9 - Gastro -esophageal reflux disease without esophagitis (5) Anxiety Current Visit: No Status: Chronic Assessment and plan: resumed home meds (6) Morbid obesity with BMI of 40.0-44.9, adult Current Visit: No Status: Chronic Assessment and plan: counseled to loose pranay - Subjective Interval history: Ms. Frost is a 52 year old female with history of poorly controlled diabetes, severe anxiety who presented to the ED this morning with complaint of chest pain which woke her from sleep. The pain is located in the left anterior chest and is stabbing and pressure like in nature, was 10/10 intensity initially but has improved to 8/10 in the ED after receiving SL nitro and IV ativan. Pt was admitted in the hospital for CP and severe hyperglycemia. She denied any more CP / SOB. Her blood sugars still elevated. - Constitutional Vitals: Temp Pulse Resp BP Pulse Ox 98.4 F 99 18 96/60 90 09/08/17 15:43 09/08/17 15:43 09/08/17 15:43 09/08/17 15:43 09/08/17 15:43 General appearance: Present: A&O X 3, no acute distress - Head Head exam: Present: atraumatic, normal inspection - Neck Neck exam general surgery: Present: supple - Respiratory Respiratory exam: Present: decreased breath sounds. Absent: rales, respiratory distress, rhonchi, wheezes - Cardiovascular Cardiovascular exam: Present: RRR, +S1, +S2 - GI/Abdominal GI/Abdominal exam: Present: normal bowel sounds, soft. Absent: rebound, rigid, tenderness - Extremities Exam Extremities exam: Absent: calf tenderness, pedal edema, tenderness - Back Exam Back exam: Absent: CVA tenderness (L), CVA tenderness (R) - Neurological Exam Neurological exam: Present: alert, oriented X3 - Psychiatric Psychiatric exam: Present: normal affect, normal mood Internal Medicine: Result - Labs CBC & Chem 7: 09/07/17 04:50 09/07/17 04:50 Labs: Cardiac Enzymes 09/07/17 09/08/17 Range/Units 17:19 00:26 Troponin I 0.01 0.00 (0-0.03) ng/mL - ABG Interpretation ABG results: PT/INR, D-dimer D-Dimer 675 ng/mLFEU (0-500) H 09/07/17 04:50 - Impressions Impressions Pulmonary Perfusion Imaging 09/07/17 15:26 IMPRESSION: Normal study. D/ / Silverio Underwood MD / Silverio Underwood MD Interpreting Provider: Silverio Underwood MD Consult Discharge Plan - Plan Referrals: Marti Alonzo MD [Primary Care Provider] -
[2017-09-08] MEDS ORDERED: Mirtazapine 15 MG TABLET PO SCH (21:00)
[2017-09-08] MEDS: Insulin DETEMIR 100 UNIT/ML X5UNITS SQ SCH (21:20)
[2017-09-08] MEDS: Perphenazine 8 MG TABLET PO SCH (21:20)
[2017-09-08] MEDS: diazePAM 10 MG TABLET PO PRN (21:48)
[2017-09-09] MEDS: Ibuprofen 800 MG TABLET PO SCH ×2 (00:13→08:01)
[2017-09-09] MEDS: Ondansetron ODT 4 MG TAB.RAPDIS SL PRN (05:06)
[2017-09-09 06:47] VITALS: BP 95/59
[2017-09-09] MEDS: Lisinopril 20 MG TABLET PO SCH (08:01)
[2017-09-09] MEDS: Perphenazine 2 MG TABLET PO SCH (08:01)
[2017-09-09] MEDS: *HR* Promethazine 25 MG/ML VIAL IVP PRN (08:01)
[2017-09-09] MEDS: hydrOXYzine pamoate 25 MG CAPSULE PO PRN (08:05)
[2017-09-09 08:08] LABS: Chol/HDL Ratio 6.4 (0-4.9); Cholesterol 211 mg/dL (< 200); HDL Cholesterol 33 mg/dL (40-59); Triglycerides 483 mg/dL (< 150)
[2017-09-09] MEDS: Insulin LISPRO 300 UNITS/3 ML VIAL SQ SCH ×4 (08:09→11:27)
[2017-09-09] MEDS: Insulin DETEMIR 100 UNIT/ML X5UNITS SQ SCH (08:36)
[2017-09-09] MEDS: diazePAM 10 MG TABLET PO PRN (09:45)
--- NOTE | 2017-09-09 10:57 | Discharge Summary ---
Date of Encounter: 09/09/17 Time of Encounter: 10:48 - Discharge Diagnosis (1) Chest pain Priority: Primary Status: Acute Qualifiers: Chest pain type: unspecified Qualified Code(s): R07.9 - Chest pain, unspecified (2) Hyperglycemia Priority: Primary Status: Acute (3) Uncontrolled diabetes mellitus Priority: Primary Status: Acute Qualifiers: Qualified Code(s): E11.65 - Type 2 diabetes mellitus with hyperglycemia (4) GERD (gastroesophageal reflux disease) Priority: Secondary Status: Acute Qualifiers: Esophagitis presence: without esophagitis Qualified Code(s): K21.9 - Gastro -esophageal reflux disease without esophagitis (5) Anxiety Priority: Secondary Status: Chronic (6) Morbid obesity with BMI of 40.0-44.9, adult Priority: Secondary Status: Chronic (7) Hyperlipidemia Priority: Secondary Status: Acute Qualifiers: Hyperlipidemia type: unspecified Qualified Code(s): E78.5 - Hyperlipidemia , unspecified - Discharge Medications Prescriptions: Atorvastatin [Lipitor] 40 mg PO HS #30 tablet Insulin DETEMIR [Levemir] 30 unit SQ BID #2 [id number] Insulin LISPRO [HumaLOG] 0 units SQ TIDAC 30 Days vial Insulin LISPRO [HumaLOG] 15 units SQ TIDWM #2 vial Home Medications: Perphenazine [Trilafon] 8 mg PO HS #30 tablet 01/27/16 [Rx] glipiZIDE [Glucotrol] 10 mg PO BIDWM tablet 01/27/16 [Rx] metFORMIN [Glucophage] 1,000 mg PO BIDWM tablet 01/27/16 [Rx] Citalopram [CeleXA] 40 mg PO DAILY 10/19/16 [History] Lisinopril [Zestril] 20 mg PO BID 10/19/16 [History] Cyclobenzaprine [Flexeril] 10 mg PO TID PRN 07/23/17 [History] Omeprazole [PriLOSEC] 20 mg PO DAILY 07/23/17 [History] Perphenazine [Trilafon] 2 mg PO QAM AND QHS 07/23/17 [History] diazePAM [Valium] 10 mg PO BID PRN 07/23/17 [History] hydrOXYzine HCl [Hydroxyzine HCl] 50 mg PO TID PRN 07/23/17 [History] Mirtazapine [Remeron] 30 mg PO DAILY 09/07/17 [History] Atorvastatin [Lipitor] 40 mg PO HS #30 tablet 09/09/17 [Rx] Insulin DETEMIR [Levemir] 30 unit SQ BID #2 [id number] 09/09/17 [Rx] Insulin LISPRO [HumaLOG] 0 units SQ TIDAC 30 Days vial 09/09/17 [Rx] Insulin LISPRO [HumaLOG] 15 units SQ TIDWM #2 vial 09/09/17 [Rx] Allergies/Adverse Reactions: 3 Allergy/AdvReac Type Severity Reaction Status Date / Time butorphanol [From Stadol] Allergy Hives Verified 09/07/17 04:31 Procedures/tests Complete & Pending: Procedures Performed prior 72 hours Category Date Time Status VQ Scan [NM pul vent and perfuse] [NM] Routine Exams 09/07/17 15:26 Completed Date of admission: 09/07/17 06:47 Primary care physician: Marti Wellington - Patient Status Disposition: Home, Self-Care Condition: Good Overall status at discharge: patient is back to baseline - Discharge Instructions Follow Up With: Marti Alonzo MD [Primary Care Provider] - Additional Instructions: Please check your BS 4 times a day Also please take insulin injections as directed Please see your PCP in 3 days Please come back to ER if your blood sugars drops below 70 and stays above 500. - Diet and Activity Diet: diabetic diet Hospital course: Ms. Frost is a 52 year old female with history of poorly controlled diabetes, severe anxiety who presented to the ED this morning with complaint of chest pain which woke her from sleep. The pain is located in the left anterior chest and is stabbing and pressure like in nature, was 10/10 intensity initially but has improved to 8/10 in the ED after receiving SL nitro and IV ativan. Pt was admitted in the hospital for CP and severe hyperglycemia. She denied any more CP / SOB. Her troponins are negative and no acute EKG changes noticed. Since her D- dimer is elevated , we did venous doppler of legs - which was negative for DVT, also her V/Q scan raoul back as negative for PE. Her blood sugars are significantly elevated. Her Hemoglobin A1C was 12.8 in 07/24. She was placed on regular Insulin 10 U with each meal + ISS medium range and Levemir 20 U BID. However her BS are still elevated. Pt does not want to stay in the hospital until her blood sugars and insulin doses optimized. So will d/c her home today with instructions how to take Insulin and checking frequent blood sugars. She does have accucheck machine at home. - Time Spent with Patient Total time spent providing and/or coordinating discharge services: - Constitutional Vitals: Temp Pulse Resp BP Pulse Ox 98.1 F 99 17 95/59 93 09/09/17 06:42 09/09/17 06:42 09/09/17 06:42 09/09/17 06:42 09/09/17 06:42 General appearance: Present: A&O X 3, no acute distress - Head Head exam: Present: atraumatic, normal inspection - Neck Neck exam general surgery: Present: supple - Respiratory Respiratory exam: Present: decreased breath sounds. Absent: rales, respiratory distress, rhonchi, stridor, wheezes - Cardiovascular Cardiovascular exam: Present: RRR, +S1, +S2. Absent: diastolic murmur, gallop, rubs, systolic murmur - GI/Abdominal GI/Abdominal exam: Present: normal bowel sounds, soft. Absent: rebound, rigid, splenomegaly, tenderness - Extremities Exam Extremities exam: Absent: calf tenderness, pedal edema, tenderness - Neurological Exam Neurological exam: Present: alert, oriented X3 - Psychiatric Psychiatric exam: Present: normal affect, normal mood
[2017-09-09 12:19] LABS: Hemoglobin A1C 12.6 %
== END 2017-09-09 11:30 | disposition home or self-care (01) ==
LOC: EMEROO 04:25 → 3BNU 04:25
PROVIDERS: ADMIT Internal Medicine; ATTEND Registered Nurse

== ENCOUNTER 2021-03-25 10:01 | Observation (INO) ==
[2021-03-25] MEDS ORDERED: Aspirin 81 MG TAB.CHEW PO ONE (10:21)
[2021-03-25 10:43] LABS: Basophils # 0.1 K/mcL (0.0-0.2); Basophils % 0.7 %; Eosinophils # 0.2 K/mcL (0.0-0.6); Eosinophils % 2.5 %; Hematocrit 37.4 % (35.3-44.9); Hemoglobin 12.8 g/dL (11.5-15.4); Immature Granulocytes % 0.4 % (0-4); Lymphocytes # 2.9 K/mcL (0.6-4.6); Lymphocytes % 33.5 %; Mean Corpuscular HGB Conc 34.2 g/dL (31.6-35.5); Mean Corpuscular Hemoglobin 30.2 pg (28.0-33.3); Mean Corpuscular Volume 88.2 fL (83.0-100.0); Mean Platelet Volume 10.8 fL (9.4-12.4); Monocytes # 0.4 K/mcL (0.0-1.3); Platelet Count 207 K/mcL (140-400); Red Blood Count 4.24 M/mcL (3.82-4.97); Red Cell Distribution Width 13.4 % (11.5-14.5); Segmented Neutrophils % 57.9 %; White Blood Count 8.6 K/mcL (4.3-11.1)
[2021-03-25 11:19] LABS: BUN/Creatinine Ratio 18 (6-26); Blood Urea Nitrogen 14 mg/dL (6-20); Carbon Dioxide 20 mEq/L (23-29); Chloride 103 mEq/L (98-107); Glucose 262 mg/dL (70-105); Osmolality,Calculated 288 (280-300); Sodium 134 mEq/L (136-145); Troponin I < 0.03 ng/mL (< 0.04); eGFR For African Americans > 60 (> 60); eGFR For Non-African Americans > 60 (> 60)
[2021-03-25] MEDS: Nitroglycerin 0.4 MG TAB.SUBL SL PRN ×3 (11:27→11:46)
[2021-03-25] MEDS ORDERED: Ondansetron 4 MG/2 ML VIAL IVP ONE (11:38)
[2021-03-25] MEDS ORDERED: *HR* FentaNYL (PF) 100 MCG/2 ML VIAL IVP ONE (12:14)
[2021-03-25] MEDS ORDERED: Naloxone 0.4 MG/ML INJ IVP PRN (12:21)
[2021-03-25] MEDS ORDERED: Isovue-370 500 ML BOTTLE IVP ONE (12:22)
[2021-03-25] MEDS ORDERED: diazePAM 10 MG/2 ML SYRINGE IVP ONE (13:57)
[2021-03-25] MEDS ORDERED: Dextrose Gel 15 GM/37.5 ML TUBE PO PRN ×2 (14:43)
[2021-03-25] MEDS ORDERED: *HR* Dextrose 50 % in Water (Vial) 50 ML VIAL IVP PRN (14:43)
[2021-03-25] MEDS ORDERED: D5% in Water 1,000 ML IVC PRN (14:43)
[2021-03-25] MEDS ORDERED: Perflutren Lipid Microsphere 1.3 ML in 0.9 % Sodium Chloride 8.7 ML IVP PRN (14:50)
[2021-03-25] MEDS: Insulin LISPRO 300 UNITS/3 ML VIAL SUBQ SCH ×2 (15:05→17:35)
[2021-03-25] MEDS: *HR* OxyCODONE Immed Rel 5 MG TABLET PO PRN (20:13)
[2021-03-25] MEDS: *HR* Heparin 5,000 UNIT/ML VIAL SQ SCH (20:14)
[2021-03-25] MEDS ORDERED: Insulin LISPRO 300 UNITS/3 ML VIAL SUBQ SCH (21:00)
[2021-03-25] MEDS ORDERED: diazePAM 10 MG TABLET PO ONE (21:00)
[2021-03-25] MEDS ORDERED: Insulin DETEMIR 100 UNIT/ML X5UNITS SUBQ SCH (21:00)
[2021-03-26 02:21] LABS: BUN/Creatinine Ratio 21 (6-26); Blood Urea Nitrogen 18 mg/dL (6-20); Calcium 8.7 mg/dL (8.6-10.3); Carbon Dioxide 21 mEq/L (23-29); Chloride 105 mEq/L (98-107); Chol/HDL Ratio 5.1 (0-4.9); Cholesterol 185 mg/dL (< 200); Glucose 208 mg/dL (70-105); HDL Cholesterol 36 mg/dL (40-59); LDL Cholesterol,Calculated 100 mg/dL (< 100); Magnesium 1.7 mg/dL (1.6-2.6); Osmolality,Calculated 290 (280-300); Potassium 3.6 mEq/L (3.5-5.1); Sodium 136 mEq/L (136-145); Triglycerides 244 mg/dL (< 150); eGFR For African Americans > 60 (> 60); eGFR For Non-African Americans > 60 (> 60)
[2021-03-26 02:38] LABS: Estimated Average Glucose 252 mg/dl; Hemoglobin A1C 10.4 %
[2021-03-26] MEDS: *HR* OxyCODONE Immed Rel 5 MG TABLET PO PRN ×2 (03:59→11:24)
[2021-03-26] MEDS ORDERED: Regadenoson 0.4 MG/5 ML SYRINGE IVP ONE (06:44)
[2021-03-26] MEDS: *HR* Heparin 5,000 UNIT/ML VIAL SQ SCH ×2 (07:01→14:07)
[2021-03-26] MEDS ORDERED: Aspirin 81 MG TAB.CHEW PO SCH (09:00)
[2021-03-26] MEDS: Insulin LISPRO 300 UNITS/3 ML VIAL SUBQ SCH ×2 (10:43→12:12)
[2021-03-26] MEDS ORDERED: diazePAM 10 MG TABLET PO SCH (11:15)
[2021-03-26] MEDS ORDERED: Gabapentin 300 MG CAPSULE PO SCH (15:00)
[2021-03-26 15:22] VITALS: BP 124/76
[2021-03-26] MEDS ORDERED: GlipiZIDE 5 MG TABLET PO SCH (21:00)
[2021-03-27] MEDS ORDERED: Perphenazine 8 MG TABLET PO SCH (09:00)
[2021-03-27] MEDS ORDERED: Furosemide 40 MG TABLET PO SCH (09:00)
== END 2021-03-26 15:38 | disposition home or self-care (01) ==
LOC: EMEROOARM 10:01 → 3BNU 10:01 → SUATTDRO 12:19 → 3BNU 13:01
PROVIDERS: ADMIT Internal Medicine; ATTEND Registered Nurse